=== PATIENT | female | born 1970 | race Caucasian/White ===

== ENCOUNTER 2018-01-23 18:19 | Emergency (ER) | payer BC ==
[2018-01-23] MEDS: NORCO 5/325MG TABLET (BULK FOR ED) PO (19:30)
== END 2018-01-23 19:51 | disposition home or self-care (01) ==
LOC: M ED 18:19
DX: S82.434A Nondisplaced oblique fracture of shaft of right fibula, initial encounter for closed fracture (principal); X50.1XXA Overexertion from prolonged static or awkward postures, initial encounter; Y92.098 Other place in other non-institutional residence as the place of occurrence of the external cause; Z88.1 Allergy status to other antibiotic agents; Z79.899 Other long term (current) drug therapy
CPT/HCPCS: 73610

== ENCOUNTER → 2018-08-27 | Outpatient (REF) | payer BC ==
[~2018-08-27] MED LIST: BETA0.0543 TOP; CITA40TA4 PO; IBUP-1114 PO; NORCOTAB PO
== END ==
LOC: M LAB REF 10:02
PROVIDERS: ATTEND Physician Assistant
DX: N39.0 Urinary tract infection, site not specified (principal)

== ENCOUNTER → 2021-02-28 | Outpatient (CLI) | payer BC ==
[~2021-02-28] MED LIST changes: +GASTROGRAFIN SOLUTION 30ML (Q9963) As Ordered ONE; +HYDR-3715 PO; +ISOVUE-370 76% 100ML VIAL As Ordered ONE; -NORCOTAB PO
--- NOTE | 2021-03-01 07:59 | REP ---
INDICATION: LEFT LOWER QUAD PAIN (2 HOUR PREP TIME). COMPARISON: 12/23/2007 TECHNIQUE: Axial contrast-enhanced images from the lung bases to the pubic symphysis using oral and 100 cc Isovue 370 intravenous contrast material. Coronal and sagittal reformations obtained. This CT examination was performed using the following dose reduction techniques: Automated exposure control, adjustment of mA and/or kv according to the patient's size, and the use of iterative reconstruction technique. FINDINGS: Lung bases are clear. Visualized heart and pericardium normal. Liver, spleen, pancreas, bilateral adrenal glands and right kidney are normal. Left kidney includes suspected 3 mm 4 mm nonobstructing calculi. The stomach including gastroesophageal junction well as a small bowel to the terminal ileum appear normal. Colon demonstrates diffuse diverticulosis extending from the cecum the sigmoid without for acute infectious/inflammatory process. Appendix is not visualized. Pelvis demonstrates normal bladder and age-appropriate uterus/adnexa. No ascites. No free air. No intraperitoneal or retroperitoneal adenopathy. Abdominal aorta and vasculature appear normal. Musculoskeletal structures are intact and without acute osseous abnormality. Degenerative changes primarily involving left sacroiliac and lower lumbosacral spine noted. IMPRESSION: No acute abdominopelvic pathology appreciated. Extensive colonic diverticulosis without acute diverticulitis. Suspected nonobstructing left renal calculi. 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 <Electronically signed by Ike Garcia > 03/01/21 [id number]
== END ==
LOC: M RAD 15:14
PROVIDERS: ATTEND Physician Assistant Medical
DX: K57.30 Diverticulosis of large intestine without perforation or abscess without bleeding (principal); N20.0 Calculus of kidney; M85.88 Other specified disorders of bone density and structure, other site
CPT/HCPCS: 74177; Q9963; Q9967

== ENCOUNTER → 2021-06-06 | Outpatient (CLI) | payer BC ==
[~2021-06-06] MED LIST changes: -GASTROGRAFIN SOLUTION 30ML (Q9963) As Ordered ONE; -ISOVUE-370 76% 100ML VIAL As Ordered ONE
== END ==
LOC: M LABSMTC 10:20
PROVIDERS: ATTEND Pediatrics
DX: Z11.52 Encounter for screening for COVID-19 (principal)